=== PATIENT | female | born 1995 | race Two or more races ===

== ENCOUNTER 2017-05-16 13:56 | Emergency (ER) | payer MEDICAID ==
[~2017-05-16] VITALS: Ht 157.5 cm; Wt 66.7 kg
[2017-05-16] MEDS ORDERED: cefTRIAXone SOD 1,000 MG VL IM ONE (17:15)
[2017-05-16 17:35] VITALS: BP 110/72
== END 2017-05-16 17:47 | disposition home or self-care (01) ==
LOC: ER 13:56
DX: J03.90 Acute tonsillitis, unspecified (principal)
CPT/HCPCS: 96372; 99283; A6209; J0696

== ENCOUNTER 2020-02-09 20:20 | Emergency (ER) | payer MEDICAID ==
[~2020-02-09] VITALS: Ht 157.5 cm; Wt 68.0 kg
[2020-02-09 20:32] VITALS: BP 143/79
[2020-02-09 22:59] LABS: Basophils # (auto) 0 10 ^3/uL (0-0.2); Basophils % (auto) 0.5 % (0.0-2.0); Eosinophils # (auto) 0.1 10 ^3/uL (0-0.8); Eosinophils % (auto) 1.1 % (0.0-7.0); Hemoglobin 12.1 g/dL (12.2-16.2); Lymphocytes # (auto) 2.1 10 ^3/uL (0.4-5.4); Lymphocytes % (auto) 34.1 % (10.0-50.0); Mean Corpuscular Hemoglobin 27.6 pg (28.0-32.0); Mean Corpuscular Hgb Conc. 32.7 g/dL (32.0-36.0); Mean Corpuscular Volume 84.4 fL (80.0-100.0); Monocytes # (auto) 0.7 10 ^3/uL (0-1.3); Monocytes % (auto) 11.7 % (0.0-12.0); Neutrophils # (auto) 3.2 10 ^3/uL (1.6-8.6); Neutrophils % (auto) 52.6 % (37.0-80.0); Nucleated Red Blood Cells % 0.1 %; Platelet Count (auto) 353 10^3/uL (140-450); Red Blood Cells 4.38 10^6/uL (4.0-5.20); Red Cell Distribution Width 15.4 % (11.8-14.3); White Blood Cell 6.1 10^3/uL (4.4-10.8)
[2020-02-10 00:06] LABS: Urine Bacteria NONE SEEN /hpf (None Seen); Urine Blood 1+ /uL (Negative); Urine Mucus FEW (None Seen); Urine Specific Gravity 1.025 (1.001-1.035); Urine WBC 2 /hpf (0 - 5)
[2020-02-10 01:01] LABS: Alanine Aminotransferase 21 U/L (13-56); Alkaline Phosphatase 78 U/L (45-117); Anion Gap 11 (5-15); Aspartate Aminotransferase 23 U/L (15-37); BUN/Creatinine Ratio 13.1; Blood Urea Nitrogen 11 mg/dL (7-18); Calcium 9.2 mg/dL (8.5-10.1); Carbon Dioxide 23 mmol/L (21-32); Chloride 105 mmol/L (98-107); GFR African American 108 mL/min; GFR Non-African American 89 mL/min; Glucose 82 mg/dL (74-106); Sodium 139 mmol/L (136-145)
[2020-02-10 01:02] LABS: Albumin 4.3 g/dL (3.4-5.0); Bilirubin, Total 0.6 mg/dL (0.2-1.0); Total Protein 8.6 g/dL (6.4-8.2)
== END 2020-02-10 02:29 | disposition home or self-care (01) ==
LOC: ER 20:21
DX: M54.41 Lumbago with sciatica, right side (principal)
CPT/HCPCS: 36415; 70450; 72100; 80053; 81001; 84484; 84702; 85025; 93005

== ENCOUNTER 2022-01-24 09:46 | Inpatient (IN) | payer OTHER, MEDICAID ==
[~2022-01-24] VITALS: Ht 157.5 cm; Wt 68.4 kg
[2022-01-24] MEDS ORDERED: ALUM & MAG HYDROX-SIMETH LIQ(MAALOX) 30 ML PO ONE (11:30)
[2022-01-24] MEDS ORDERED: LIDOCAINE VISCOUS 2% 15ML UD PO ONE (11:30)
[2022-01-24] MEDS ORDERED: ONDANSETRON HCL 4 MG/2 ML VIAL IV ONE ×2 (11:30→23:45)
[2022-01-24] MEDS ORDERED: FAMOTIDINE (10MG/ML) 2ML VL IV ONE (11:30)
[2022-01-24] MEDS ORDERED: SODIUM CHLORIDE 0.9% 1,000 ML IV ONE (11:30)
[2022-01-24 12:18] LABS: Urine Bacteria FEW /hpf (None Seen); Urine Blood 3+ /uL (Negative); Urine Hyaline Cast FEW /lpf (0 - 2); Urine Mucus FEW (None Seen); Urine Specific Gravity 1.028 (1.001-1.035); Urine WBC 2 /hpf (0 - 5)
[2022-01-24 12:24] LABS: Basophils # (auto) 0 10 ^3/uL (0-0.2); Basophils % (auto) 0.3 % (0.0-2.0); Eosinophils # (auto) 0 10 ^3/uL (0-0.8); Hemoglobin 14.5 g/dL (12.2-16.2); Lymphocytes # (auto) 0.7 10 ^3/uL (0.4-5.4); Lymphocytes % (auto) 5.6 % (10.0-50.0); Mean Corpuscular Hemoglobin 27.1 pg (28.0-32.0); Mean Corpuscular Hgb Conc. 31.5 g/dL (32.0-36.0); Mean Corpuscular Volume 86.1 fL (80.0-100.0); Monocytes # (auto) 0.5 10 ^3/uL (0-1.3); Monocytes % (auto) 4.1 % (0.0-12.0); Neutrophils # (auto) 11.8 10 ^3/uL (1.6-8.6); Nucleated Red Blood Cells % 0.1 %; Red Blood Cells 5.35 10^6/uL (4.0-5.20); Red Cell Distribution Width 15.7 % (11.8-14.3); White Blood Cell 13.1 10^3/uL (4.4-10.8)
[2022-01-24 12:40] LABS: Albumin 4.6 g/dL (3.4-5.0); Calcium 9.7 mg/dL (8.5-10.1); Magnesium 2.3 mg/dL (1.6-2.6)
[2022-01-24 12:43] LABS: BUN/Creatinine Ratio 15.4; Bilirubin, Total 0.7 mg/dL (0.2-1.0); Total Protein 9.3 g/dL (6.4-8.2)
[2022-01-24 12:54] LABS: Potassium 6.3 mmol/L (3.5-5.1)
[2022-01-24] MEDS ORDERED: DEXTROSE (50%) 50ML SYRG IV PRN ×2 (13:00→15:45)
[2022-01-24] MEDS ORDERED: LACTATED RINGER'S 1,000 ML IV ONE (13:00)
[2022-01-24] MEDS ORDERED: LACTATED RINGER'S 2,000 ML IV ONE (13:00)
[2022-01-24] MEDS ORDERED: InsuLIN R (HUMAN) 100 UNITS in SODIUM CHL 0.9% 99 ML IV SCH ×2 (13:15→15:45)
[2022-01-24] MEDS ORDERED: INSULIN LANTUS (GLARGINE) 1 /0.01ml (100units/ml) SC ONE (15:45)
[2022-01-24] MEDS ORDERED: POTASSIUM CHL 20MEQ/100ML 200 ML IV PRN ×2 (15:45→16:15)
[2022-01-24] MEDS ORDERED: POTASSIUM CHL 20MEQ/100ML 100 ML IV PRN ×2 (15:45→16:15)
[2022-01-24] MEDS ORDERED: SODIUM BICARBONATE 50ML VIAL 150 ML in SOD CHL 0.45% 1,000 ML IV SCH (15:45)
[2022-01-24] MEDS ORDERED: MAGNESIUM SULFATE 1GM/100ML 200 ML IV ONE (15:45)
[2022-01-24] MEDS: ACCU-CHEK COMFORT CURVE STRIP VI SCH ×5 (17:28→22:30)
[2022-01-24] MEDS: SODIUM CHLORIDE 0.9% 1,000 ML IV SCH ×3 (18:43→21:45)
[2022-01-24 19:04] LABS: BUN/Creatinine Ratio 14.6; Calcium 8.2 mg/dL (8.5-10.1); Potassium 4.9 mmol/L (3.5-5.1)
[2022-01-24] MEDS: SODIUM BICARBONATE 8.4 % INJ 50ML VIAL IV ONE ×2 (19:04→23:40)
[2022-01-24] MEDS ORDERED: SODIUM CHLORIDE 0.9% 1,000 ML IV SCH (19:45)
[2022-01-24] MEDS ORDERED: SODIUM BICARBONATE 50ML VIAL 150 ML in SOD CHL 0.45% 1,000 ML IV ONE (23:30)
[2022-01-25] VITALS (28 sets, daily range): BP systolic 96–117; BP diastolic 55–69
[2022-01-25] MEDS: ACCU-CHEK COMFORT CURVE STRIP VI SCH ×8 (00:20→23:48)
[2022-01-25 00:37] LABS: BUN/Creatinine Ratio 19.2; Calcium 6.9 mg/dL (8.5-10.1); Potassium 3.3 mmol/L (3.5-5.1)
[2022-01-25 04:43] LABS: BUN/Creatinine Ratio 19.6; Calcium 7.2 mg/dL (8.5-10.1); Potassium 3.1 mmol/L (3.5-5.1)
[2022-01-25] MEDS ORDERED: POTASSIUM CHL 20 Meq TABLET PO ONE (05:00)
[2022-01-25] MEDS ORDERED: DEXTROSE (50%) 50ML SYRG IV PRN (05:15)
[2022-01-25] MEDS: SODIUM CHLORIDE 0.9% 1,000 ML IV SCH ×3 (05:22→15:30)
[2022-01-25] MEDS: InsuLIN REG 1unit/0.01ml Soln (100units/ml) SC SCH ×5 (08:12→23:46)
[2022-01-25] MEDS: INSULIN LANTUS (GLARGINE) 1 /0.01ml (100units/ml) SC SCH (10:01)
[2022-01-25 11:00] LABS: BUN/Creatinine Ratio 17.5; Calcium 7.3 mg/dL (8.5-10.1); Potassium 3.4 mmol/L (3.5-5.1)
[2022-01-25 11:36] LABS: Magnesium 2.1 mg/dL (1.6-2.6)
[2022-01-25 11:40] LABS: Phosphorus 0.8 mg/dL (2.5-4.90)
[2022-01-25 11:53] LABS: Basophils # (auto) 0 10 ^3/uL (0-0.2); Basophils % (auto) 0.7 % (0.0-2.0); Eosinophils # (auto) 0 10 ^3/uL (0-0.8); Eosinophils % (auto) 0.2 % (0.0-7.0); Hematocrit 30.1 % (36.0-46.0); Hemoglobin 10.1 g/dL (12.2-16.2); Lymphocytes # (auto) 0.9 10 ^3/uL (0.4-5.4); Mean Corpuscular Hemoglobin 27.6 pg (28.0-32.0); Mean Corpuscular Hgb Conc. 33.5 g/dL (32.0-36.0); Mean Corpuscular Volume 82.3 fL (80.0-100.0); Monocytes # (auto) 0.6 10 ^3/uL (0-1.3); Monocytes % (auto) 8.5 % (0.0-12.0); Neutrophils # (auto) 5.6 10 ^3/uL (1.6-8.6); Neutrophils % (auto) 78.6 % (37.0-80.0); Nucleated Red Blood Cells % 0.1 %; Red Blood Cells 3.66 10^6/uL (4.0-5.20); Red Cell Distribution Width 16.1 % (11.8-14.3); White Blood Cell 7.1 10^3/uL (4.4-10.8)
[2022-01-25 13:50] LABS: Protein, Urine 49.9 mg/dL (0.0-11.9)
[2022-01-25] MEDS ORDERED: POTASSIUM PHOSPHATE 26.4 MEQ in SODIUM CHL 0.9% 100 ML IV ONE (15:30)
[2022-01-26] VITALS: BP 110/71
[2022-01-26] MEDS: SODIUM CHLORIDE 0.9% 1,000 ML IV SCH ×3 (01:30→22:48)
[2022-01-26 03:42] LABS: BUN/Creatinine Ratio 10.8; Basophils # (auto) 0 10 ^3/uL (0-0.2); Basophils % (auto) 0.5 % (0.0-2.0); Calcium 7.9 mg/dL (8.5-10.1); Eosinophils # (auto) 0.1 10 ^3/uL (0-0.8); Hematocrit 28.7 % (36.0-46.0); Hemoglobin 9.7 g/dL (12.2-16.2); Lymphocytes # (auto) 1.8 10 ^3/uL (0.4-5.4); Lymphocytes % (auto) 35.9 % (10.0-50.0); Magnesium 2.2 mg/dL (1.6-2.6); Mean Corpuscular Hemoglobin 27.4 pg (28.0-32.0); Mean Corpuscular Hgb Conc. 33.9 g/dL (32.0-36.0); Mean Corpuscular Volume 80.8 fL (80.0-100.0); Monocytes # (auto) 0.4 10 ^3/uL (0-1.3); Monocytes % (auto) 8.9 % (0.0-12.0); Neutrophils # (auto) 2.7 10 ^3/uL (1.6-8.6); Neutrophils % (auto) 53.7 % (37.0-80.0); Nucleated Red Blood Cells % 0.2 %; Phosphorus 1.1 mg/dL (2.5-4.90); Red Blood Cells 3.55 10^6/uL (4.0-5.20); Red Cell Distribution Width 16.4 % (11.8-14.3)
[2022-01-26 03:51] LABS: Potassium 2.6 mmol/L (3.5-5.1)
[2022-01-26] MEDS: ACCU-CHEK COMFORT CURVE STRIP VI SCH ×5 (04:23→22:46)
[2022-01-26] MEDS: InsuLIN REG 1unit/0.01ml Soln (100units/ml) SC SCH ×5 (04:25→22:48)
[2022-01-26 05:00] VITALS: BP 116/67
[2022-01-26] MEDS ORDERED: POTASSIUM CHL 20 Meq TABLET PO ONE (05:45)
[2022-01-26 09:00] VITALS: BP 112/75
[2022-01-26] MEDS ORDERED: LACTULOSE 20Gm/30ML SOLN PO ONE (10:00)
[2022-01-26] MEDS ORDERED: DOCUSATE SOD 100 MG CAP PO ONE (10:00)
[2022-01-26] MEDS ORDERED: DEXTROSE (50%) 50ML SYRG IV PRN (10:00)
[2022-01-26] MEDS: INSULIN LANTUS (GLARGINE) 1 /0.01ml (100units/ml) SC SCH (10:03)
[2022-01-26] MEDS ORDERED: POTASSIUM PHOSPHATE 26.4 MEQ in SODIUM CHL 0.9% 100 ML IV ONE (10:30)
[2022-01-26 12:46] VITALS: BP 114/68
[2022-01-26 17:25] VITALS: BP 114/75
[2022-01-26 22:00] VITALS: BP 113/73
[2022-01-27 05:00] VITALS: BP 105/68
[2022-01-27 05:29] LABS: BUN/Creatinine Ratio 14.3; Calcium 7.9 mg/dL (8.5-10.1); Phosphorus 2.5 mg/dL (2.5-4.90)
[2022-01-27 05:45] LABS: Potassium 2.9 mmol/L (3.5-5.1)
[2022-01-27] MEDS: ACCU-CHEK COMFORT CURVE STRIP VI SCH ×3 (06:25→17:04)
[2022-01-27] MEDS: InsuLIN REG 1unit/0.01ml Soln (100units/ml) SC SCH ×3 (06:31→17:06)
[2022-01-27 09:00] VITALS: BP 122/94
[2022-01-27] MEDS: POTASSIUM CHL 20MEQ/100ML 100 ML IV SCH ×3 (09:07→14:36)
[2022-01-27] MEDS: INSULIN LANTUS (GLARGINE) 1 /0.01ml (100units/ml) SC SCH (10:46)
[2022-01-27 13:00] VITALS: BP 128/87
[2022-01-27 16:04] VITALS: BP 128/87
[2022-01-27 17:12] VITALS: BP 117/81
== END 2022-01-27 18:20 | disposition home or self-care (01) | DRG 637 ==
LOC: ER 09:46 → TELE 15:38 → ICU WEST 01-25 00:01 → CENTRAL 01-26 03:40
PROVIDERS: ADMIT Registered Nurse; ATTEND Internal Medicine
DX: E11.10 Type 2 diabetes mellitus with ketoacidosis without coma (principal); N17.0 Acute kidney failure with tubular necrosis; R65.10 Systemic inflammatory response syndrome (SIRS) of non-infectious origin without acute organ dysfunction; E86.0 Dehydration; E87.5 Hyperkalemia; D64.9 Anemia, unspecified; E83.39 Other disorders of phosphorus metabolism; E87.6 Hypokalemia; R00.0 Tachycardia, unspecified; Z20.822 Contact with and (suspected) exposure to COVID-19; Z82.49 Family history of ischemic heart disease and other diseases of the circulatory system; Z83.3 Family history of diabetes mellitus
CPT/HCPCS: 36415; 36600; 71045; 80048; 80053; 81001; 81025; 82010; 82306; 82570; 82805; 82962; 83036; 83690; 83735; 83930; 84100; 84132; 84156; 84300; 84443; 85025; 87081; 93005; 96361; 96365; 96367; 99291; G0378; J1815; J2405; J3480